=== PATIENT | female | born 1960 ===

== ENCOUNTER 2023-09-05 12:10 | Emergency (ER) | payer SELFPAY ==
[2023-09-05 12:32] VITALS: TEMP 97.7
[2023-09-05] MEDS ORDERED: SODIUM CHLORIDE 0.9% 1,000 ML IV STA (12:46)
[2023-09-05] MEDS ORDERED: ONDANSETRON 4 MG/2 ML VIAL IVP STA (12:46)
[2023-09-05] MEDS ORDERED: diphenhydrAMINE 50 MG/ML 1 ML VIAL IVP STA (12:46)
[2023-09-05 13:07] LABS: Glucose,Whole Blood 91 mg/dL (70-110)
[2023-09-05] MEDS: MECLIZINE 12.5 MG TAB PO STA (13:22)
--- NOTE | 2023-09-05 13:26 | ED ---
Dizziness HPI - General Chief Complaint: Dizziness Stated Complaint: Dizziness Time Seen by Provider: 09/05/23 12:28 Source: patient, RN notes reviewed, old records reviewed Mode of arrival: ambulatory Limitations: no limitations - History of Present Illness Initial Comments: This is a 62-year-old female to the ER for evaluation today. Patient returns today for evaluation regards to patient presents today for evaluation regards to dizziness occurring at dinner or lunch today. Patient had room spinning around felt off balance and presents to the ER for evaluation with history of vertigo and palpitations. Patient was confirmed for abnormal heart rate MD Complaint: dizziness, lightheadedness, near syncope -: days(s) Timing: gradual onset Description: sense of movement, "room spinning", off-balance History of Same: Yes History of Trauma: Yes Severity: mild Improves With: remaining still Worsens With: movement Associated Symptoms: denies other symptoms - Related Data Previous Rx's Medication Instructions Recorded Meclizine [Antivert] 25 mg PO TID #15 tab 09/05/23 Allergies Allergy/AdvReac Type Severity Reaction Status Date / Time acetaminophen Allergy Unknown Verified 09/05/23 12:22 [From Darvocet-N] gluten Allergy Unknown Verified 09/05/23 12:22 milk Allergy Unknown Verified 09/05/23 12:22 Penicillins Allergy Unknown Verified 09/05/23 12:22 pepper (genus Capsicum) Allergy Unknown Verified 09/05/23 12:22 propoxyphene Allergy Unknown Verified 09/05/23 12:22 [From Darvocet-N] Sulfa (Sulfonamide Allergy Unknown Verified 09/05/23 12:22 Antibiotics) Review of Systems ROS Statement: Those systems with pertinent positive or pertinent negative responses have been documented in the HPI. ROS Other: All systems not noted in ROS Statement are negative. Past Medical History Past Medical History: Thyroid Disorder History of Any Multi-Drug Resistant Organisms: None Reported Past Surgical History: No Surgical Hx Reported Past Psychological History: No Psychological Hx Reported Smoking Status: Never smoker Past Alcohol Use History: Occasional Past Drug Use History: None Reported General Exam Limitations: no limitations General appearance: alert, in no apparent distress Head exam: Present: atraumatic, normocephalic, normal inspection Eye exam: Present: normal appearance, PERRL, EOMI. Absent: scleral icterus, conjunctival injection, periorbital swelling ENT exam: Present: normal exam, mucous membranes moist Neck exam: Present: normal inspection. Absent: tenderness, meningismus, lymphadenopathy Respiratory exam: Present: normal lung sounds bilaterally. Absent: respiratory distress, wheezes, rales, rhonchi, stridor Cardiovascular Exam: Present: regular rate, normal rhythm, normal heart sounds. Absent: systolic murmur, diastolic murmur, rubs, gallop, clicks GI/Abdominal exam: Present: soft, normal bowel sounds. Absent: distended, tenderness, guarding, rebound, rigid Extremities exam: Present: normal inspection, full ROM, normal capillary refill. Absent: tenderness, pedal edema, joint swelling, calf tenderness Back exam: Present: normal inspection Neurological exam: Present: alert, oriented X3, CN II-XII intact Psychiatric exam: Present: normal affect, normal mood Skin exam: Present: warm, dry, intact, normal color. Absent: rash Course Vital Signs 09/05/23 09/05/23 12:12 13:41 Temperature 97.7 F Pulse Rate 83 80 Respiratory 16 17 Rate Blood Pressure 133/84 132/81 O2 Sat by Pulse 100 98 Oximetry - Reevaluation(s) Reevaluation #1: 09/05/23 20:39 Medical records reviewed Reevaluation #2: 09/05/23 20:39 Patient symptoms unchanged Reevaluation #3: 09/05/23 20:39 Patient informed of results and questions answered Reevaluation #4: 09/05/23 20:39 Was pt. sent in by a medical professional or institution (, PA, BATCH WEIGHER, urgent care, hospital, or intermediate...) When possible be specific @ -no Did you speak to anyone other than the patient for history (EMS, parent, family, police, friend...)? What history was obtained from this source @ -no Did you review nursing and triage notes (agree or disagree)? Why? @ -agree Are old charts reviewed (outside hosp., previous admission, EMS record, old EKG, old radiological studies, urgent care reports/EKG's, intermediate records)? Report findings @ -yes Differential Diagnosis (chest pain, altered mental status, abdominal pain women, abdominal pain men, vaginal bleeding, weakness, fever, dyspnea, syncope, headache, dizziness, GI bleed, back pain, seizure, CVA, palpatations, mental health, musculoskeletal)? @ -prior EKG interpreted by me (3pts min.). @ -yes X-rays interpreted by me (1pt min.). @ -no CT interpreted by me (1pt min.). @ -no U/S interpreted by me (1pt. min.). @ -no What testing was considered but not performed or refused? (CT, X-rays, U/S, labs)? Why? @ -none What meds were considered but not given or refused? Why? @ -none Did you discuss the management of the patient with other professionals (professionals i.e. , PA, BATCH WEIGHER, lab, RT, psych nurse, social media intern, event mgr, teacher, public affairs officer, home health care case manager)? Give summary @ -no Was smoking cessation discussed for >3mins.? @ -no Was critical care preformed (if so, how long)? @ -no Were there social determinants of health that impacted care today? How? (Homelessness, low income, unemployed, alcoholism, drug addiction, transportation, low edu. Level, literacy, decrease access to med. care, [place] [facility], rehab)? @ -none Was there de-escalation of care discussed even if they declined (Discuss DNR or withdrawal of care, Hospice)? DNR status @ -no What co-morbidities impacted this encounter? (DM, HTN, Smoking, COPD, CAD, Cancer, CVA, ARF, Chemo, Hep., AIDS, mental health diagnosis, sleep apnea, morbid obesity)? @ -none Was patient admitted / discharged? Hospital course, mention meds given and route, prescriptions, significant lab abnormalities, going to OR and other pertinent info. @ - 62 female will be discharged home at patient's request with vertiginous symptoms, patient has normal EKG and can be discharged Discharge Undiagnosed new problem with uncertain prognosis? @ -no Drug Therapy requiring intensive monitoring for toxicity (Heparin, Nitro, Insulin, Cardizem)? @ -no Were any procedures done? @ -no Diagnosis/symptom? @ -Vertigo Acute, or Chronic, or Acute on Chronic? @ -Acute Uncomplicated (without systemic symptoms) or Complicated (systemic symptoms)? @ -Complicated Side effects of treatment? @ -no Exacerbation, Progression, or Severe Exacerbation? @ -exacerbation Poses a threat to life or bodily function? How? (Chest pain, [place], [place], pneumonia, PE, COPD, DKA, ARF, appy, cholecystitis, CVA, Diverticulitis, Homicidal, Suicidal, threat to staff... and all critical care pts) @ -yes vertiginous symptoms could be sign of CVA Reevaluation #5: 09/05/23 20:39 Differential Dizziness: Benign paroxysmal positional Vertigo, Menieres disease, otitis media, acoustic neuroma, vertebrobasilar insufficiency, cerebellar stroke, encephalitis, hypovolemic, arrhythmia, coronary artery syndrome, anemia, this is not meant to be an all-inclusive list EKG Findings - EKG Comments: EKG Findings:: EKG is sinus 63 VT 181 QRS 94 QTc 401 - EKG Results: EKG: interpreted by MARTA Medical Decision Making - Medical Decision Making 62 female will be discharged home at patient's request with vertiginous symptoms, patient has normal EKG and can be discharged, patient is able to ambulate without difficulty, patient is refusing further evaluation regarding possibility of CVA states she has had vertigo before and that this is her normal vertiginous symptoms - Lab Data Lab Results 09/05/23 Range/Units 13:05 POC Glucose (mg/dL) 91 (70-110) mg/dL POC Glu Hospital Director ID Dafne Batista - EKG Data -: EKG Interpreted by Me Disposition Clinical Impression: Benign paroxysmal positional vertigo Disposition: HOME SELF-CARE Condition: Good Instructions (If sedation given, give patient instructions): Vertigo (ED) Prescriptions: Meclizine [Antivert] 25 mg PO TID #15 tab Is patient prescribed a controlled substance at d/c from ED?: No Referrals: Howard Lyons MD [Primary Care Provider] - 1-2 days Time of Disposition: 13:30
[2023-09-05] MEDS: ONDANSETRON 4 MG TAB PO STA (13:46)
[2023-09-05] MEDS: ONDANSETRON 4 MG ODT STARTER PACK 2 TAB BTL PO STA (13:46)
[2023-09-05 14:05] VITALS: BP 132/81; PULSE 80; RESP 17
== END 2023-09-05 13:46 | disposition home or self-care (01) ==
LOC: EC 12:10
DX: H81.10 Benign paroxysmal vertigo, unspecified ear (principal); Z88.0 Allergy status to penicillin; Z88.2 Allergy status to sulfonamides; Z88.6 Allergy status to analgesic agent; Z91.011 Allergy to milk products; Z91.018 Allergy to other foods; Z88.8 Allergy status to other drugs, medicaments and biological substances
CPT/HCPCS: 36415; 99284